=== PATIENT | female | born 1955 | race Caucasian/White ===

== ENCOUNTER → 2020-04-30 | Outpatient (CLI) | payer OTHER ==
--- NOTE | 2020-04-30 08:53 | RAD ---
EXAM: Bilateral knees, standing view: Bilateral knees, lateral and sunrise views. HISTORY: Pain. COMPARISON: None. FINDINGS: 3 views of both knees are obtained. There is bilateral medial compartment joint space narrowing with subchondral sclerosis and spurring. There is mild bilateral lateral and patellofemoral compartment spurring. There is no fracture, dislocation or subluxation. There is no significant joint effusion. 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 Electronically signed by: Vera Hernandez MD (04/30/2020 8:50 AM) [id number]
== END | disposition home or self-care (01) ==
LOC: RAD 08:21
PROVIDERS: ATTEND Physician Assistant
DX: M17.0 Bilateral primary osteoarthritis of knee (principal)
CPT/HCPCS: 73560; 73565